=== PATIENT | male | born 1975 | race Caucasian/White ===

== ENCOUNTER 2018-09-10 13:15 | Emergency (ER) | payer OTHER ==
[~2018-09-10] VITALS: Ht 190.5 cm; Wt 81.6 kg
[2018-09-10 14:23] VITALS: BP 128/77
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
[2018-09-10] MEDS ORDERED: DICL50TA4 PO (15:15)
[2018-09-10] MEDS ORDERED: CYCL10TA2 PO (15:15)
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
== END 2018-09-10 15:22 | disposition home or self-care (01) ==
LOC: ER 13:15
DX: M25.552 Pain in left hip (principal); E10.9 Type 1 diabetes mellitus without complications; Z90.49 Acquired absence of other specified parts of digestive tract; Z88.0 Allergy status to penicillin; Z88.1 Allergy status to other antibiotic agents; V43.52XA Car driver injured in collision with other type car in traffic accident, initial encounter; Y93.89 Activity, other specified; Y92.410 Unspecified street and highway as the place of occurrence of the external cause; Y99.8 Other external cause status
CPT/HCPCS: 73502; 99283

== ENCOUNTER → 2019-01-07 | Outpatient (CLI) | payer OTHER ==
[~2019-01-07] MED LIST: 0.9 % SODIUM CHLORIDE 10 ML DISP.SYRIN. ID ONE; CYCL10TA2 PO; DICL50TA4 PO; INSU100I13 SQ; IOHEXOL 300 MG/ML 50 ML VIAL. INT ART ONE; LIDOCAINE 1% Multi-Dose 20 ML VIAL. ID ONE
--- NOTE | 2019-01-07 14:53 | KCIC ---
EXAM: Right glenohumeral joint injection with Fluoroscopic guidance DATE: 01/07/2019 1:30 PM CLINICAL HISTORY: Right shoulder pain, decreased range of motion. COMPARISON: None pertinent TECHNIQUE: The patient was informed of the indications and alternatives for this procedure as well as risks and benefits. No immediate contraindication identified. The patient provided informed, written consent. Laterality was confirmed by the entire team following a time out. Following initial right glenohumeral joint localization, a suitable area was sterilely prepped and draped. Local anesthesia was administered with 1% xylocaine. With intermittent fluoroscopic observation, a 22-gauge spinal needle was advanced into the right glenohumeral capsule with confirmation of intra-synovial position with infusion of less than 1 cc iodinated contrast. Subsequent infusion 12 cc solution containing 5 cc saline, 5 cc lidocaine 1% and 10 cc Isovue-300. Hemostasis with local pressure. Local clinical exam negative for immediate complication. Patient informed re local potential signs or symptoms that may indicate need to return to ER/Ordering physician for further evaluation. Patient informed re precautionary measures after intra-synovial injection of anesthetic. Patient expressed understanding. Performing Physicians: Dr. Angelo Beatty Blood Loss: 0 cc Pre-procedural Pain Scale: 8 Post-procedural Pain Scale: 0 Total Fluoroscopy time: 6 seconds Total spot images taken: 0 Fluoroscopic screen save last image hold images: 2 IMPRESSION: Successful intra-synovial injection right glenohumeral joint with iodinated contrast pre-CT per clinical request. Electronically signed by: Je Beatty MD (01/07/2019 2:51 PM) [email or web address]
--- NOTE | 2019-01-07 15:26 | KCIC ---
EXAM: CT ARTHROGRAM, RIGHT GLENOHUMERAL JOINT DATE: 01/07/2019 2:30 PM CLINICAL HISTORY: Right shoulder pain, decreased range of motion. COMPARISON: None TECHNIQUE: Following intra-articular injection of dilute iodinated contrast, axial source images were obtained through the right shoulder. Coronal and sagittal reformatted images were also generated. Please see separate procedure report for full injection details. FINDINGS: Joint capsule: Iatrogenic iodinated contrast distention of the right glenohumeral joint without synovial nodularity. No intra-articular loose body. Periarticular fluid: No periarticular ganglion. No contrast extension into the subacromial-subdeltoid bursa. Tendon integrity: Rotator cuff tendons intact. Negative muscular atrophy. Biceps tendon intact, anatomically positioned at the bicipital groove. Labrum: The glenoid labrum is intact without associated ganglion. Anterior inferior glenohumeral capsule is not redundant. Articular cartilage: Articular cartilage is preserved throughout. Bone: No Hill-Sachs defect. No fracture or osteonecrosis. Negative AC osteoarthritis. Type 2 acromion. No lateral downsloping. IMPRESSION: 1. No full-thickness or articular sided rotator cuff tear is identified. 2. The glenoid labrum is intact. Electronically signed by: Je Beatty MD (01/07/2019 3:23 PM) [email or web address]
== END | disposition home or self-care (01) ==
LOC: KCIC 13:17
PROVIDERS: ATTEND Family Medicine
DX: M25.511 Pain in right shoulder (principal)
CPT/HCPCS: 20610; 73040; 73201; Q9967